=== PATIENT | female | born 1990 | race Caucasian/White ===

== ENCOUNTER 2018-04-21 00:18 | Emergency (ER) | payer OTHER ==
[2018-04-21 01:22] LABS: BASOPHILS # (AUTO) 0.1 10^3/uL (0.0-0.1); BASOPHILS % (AUTO) 1.2 %; EOSINOPHILS # (AUTO) 0.3 10^3/uL (0.0-0.7); EOSINOPHILS % (AUTO) 2.8 %; HGB - HEMOGLOBIN 12.9 g/dL (12.0-16.0); LYMPHOCYTES % (AUTO) 29.3 %; MEAN CORPUSCULAR HEMOGLOBIN 27.8 pg (27.0-31.0); MEAN CORPUSCULAR HGB CONC 33.7 g/dL (32.0-36.0); MEAN CORPUSCULAR VOLUME 82.4 fL (81.0-99.0); MEAN PLATELET VOLUME 7.2 fL (7.9-10.8); MONOCYTES # (AUTO) 0.7 10^3/uL (0.0-1.0); MONOCYTES % (AUTO) 6.3 %; NEUTROPHILS # (AUTO) 6.3 10^3/uL (1.5-6.6); NEUTROPHILS % (AUTO) 60.4 %; PLT - PLATELET COUNT 331 10^3/uL (130-450); RED BLOOD COUNT 4.64 10^6/uL (4.20-5.40); RED CELL DISTRIBUTION WIDTH 15.3 % (12.0-15.0); WHITE BLOOD COUNT 10.4 x10^3/uL (4.8-10.8)
[2018-04-21 01:33] LABS: ALBUMIN 3.8 g/dL (3.2-5.5); ALBUMIN/GLOBULIN RATIO 1.3 (1.0-2.2); ALKALINE PHOSPHATASE 72 IU/L (42-121); ALT ALANINE AMINOTRANSFERASE 21 IU/L (10-60); AST ASPARTATE AMINOTRANSFERASE 26 IU/L (10-42); BILIRUBIN,TOTAL < 0.2 mg/dL (0.2-1.0); BUN - BLOOD UREA NITROGEN 14 mg/dL (6-20); CALCIUM 8.5 mg/dL (8.5-10.3); CARBON DIOXIDE - CO2 22 mmol/L (21-32); CHLORIDE 106 mmol/L (101-111); CREATININE 0.6 mg/dL (0.4-1.0); GFR - MDRD 118 (>89); GLUCOSE 119 mg/dL (70-100); LIPASE 29 U/L (22-51); SODIUM 137 mmol/L (135-145); TOTAL PROTEIN 6.8 g/dL (6.7-8.2)
--- NOTE | 2018-04-21 01:43 | XRAY Report ---
Procedure Date: 04/21/2018 Accession Number: [id number] / [id number] Procedure: XR - Chest 2 View X-Ray CPT Code: 40795 FULL RESULT: EXAM: CHEST RADIOGRAPHY EXAM DATE: 04/21/2018 01:35 AM. CLINICAL HISTORY: Chest pain. COMPARISON: None. TECHNIQUE: 2 views. FINDINGS: Lungs/Pleura: No alveolar consolidation or pleural effusion seen. No pneumothorax. Mediastinum: Heart and mediastinal contours are unremarkable. Other: None. IMPRESSION: 1. No acute abnormality seen in the chest. RADIA
--- NOTE | 2018-04-21 01:49 | ED Physician Documentation ---
History of Present Illness - Stated complaint Stated Complaint: CHEST PAIN - Chief complaint Chief Complaint: Cardiac - History obtained from History obtained from: Patient - Additonal information Additional information: 27-year-old female presents the emergency department with complaints of intermittent episodes of chest pain. The patient experiences pain in the morning and evenings. The symptoms come on suddenly and resolve spontaneously. Typically, the patient does not have symptoms during the day when she is doing activities. No radiation of the symptoms. Symptoms are described as moderate when they occur. Currently, the patient's symptoms are mild. The patient denies shortness of breath, dyspnea on exertion, URI symptoms or fever. No other associated symptoms Review of Systems Constitutional: denies: Fever, Chills Eyes: denies: Loss of vision Ears: denies: Ear pain Nose: denies: Congestion Throat: denies: Sore throat Cardiac: reports: Chest pain / pressure. denies: Pedal edema, Calf pain Respiratory: denies: Dyspnea, Cough, Hemoptysis GI: denies: Abdominal Pain : denies: Dysuria Skin: denies: Rash Musculoskeletal: denies: Neck pain Neurologic: denies: Confused Immunocompromised: denies: Chemotherapy PD PAST MEDICAL HISTORY - Past Medical History Past Medical History: No Psych: Depression, Anxiety - Past Surgical History Past Surgical History: No - Present Medications Home Medications: Ambulatory Orders Medication Instructions Recorded Confirmed Norethindrone [Amber] 1 tab PO DAILY 04/21/18 04/21/18 - Allergies Allergies/Adverse Reactions: Allergies Allergy/AdvReac Type Severity Reaction Status Date / Time Sulfa (Sulfonamide AdvReac Rash Verified 04/21/18 00:32 Antibiotics) - Social History Does the pt smoke?: No Smoking Status: Never smoker Does the pt drink ETOH?: Yes ETOH Use: Wine Does the pt have substance abuse?: No - Immunizations Immunizations are current?: Yes - POLST Patient has POLST: No PD ED PE NORMAL - General General: Alert and oriented X 3, No acute distress - HEENT HEENT: Atraumatic, PERRL, EOMI, Ears normal - Neck Neck: Supple, no meningeal sign - Cardiac Cardiac: RRR, Strong equal pulses - Respiratory Respiratory: No respiratory distress, Clear bilaterally - Abdomen Abdomen: Normal bowel sounds, Non tender - Derm Derm: Normal color - Extremities Extremities: No deformity, No edema - Neuro Neuro: Alert and oriented X 3, Normal speech - Psych Psych: Normal mood Results - Vitals Vitals: Vital Signs - 24 hr 04/21/18 04/21/18 00:20 01:39 Temperature 36.4 C L Heart Rate 84 75 Respiratory 16 17 Rate Blood Pressure 124/82 H 120/83 H O2 Saturation 98 99 Oxygen O2 Source Room air - EKG (time done) 00:29 Rate: Rate (enter#) Rhythm: NSR Intervals: Normal MT, QRS normal Ischemia: Normal ST segments Other comments: Other comments (No acute ischemic changes) - Labs Labs: Laboratory Tests 04/21/18 04/21/18 04/21/18 01:15 01:15 01:15 WBC 10.4 RBC 4.64 Hgb 12.9 Hct 38.2 MCV 82.4 MCH 27.8 MCHC 33.7 RDW 15.3 H Plt Count 331 MPV 7.2 L Neut # (Auto) 6.3 Lymph # (Auto) 3.0 [place] # (Auto) 0.7 Eos # (Auto) 0.3 Baso # (Auto) 0.1 Absolute Nucleated RBC 0.01 Nucleated RBC % 0.1 Sodium 137 Potassium 3.4 L Chloride 106 Carbon Dioxide 22 Anion Gap 9.0 BUN 14 Creatinine 0.6 Estimated GFR (MDRD) 118 Glucose 119 H Calcium 8.5 Total Bilirubin < 0.2 L AST 26 ALT 21 Alkaline Phosphatase 72 Troponin I < 0.04 Total Protein 6.8 Albumin 3.8 Globulin 3.0 Albumin/Globulin Ratio 1.3 Lipase 29 Serum HCG, Qual NEGATIVE - Rads (name of study) CXR Radiology: Final report received (Impression: No acute disease) PD MEDICAL DECISION MAKING - ED course Complexity details: other (Well score 0 PERC score 0) ED course: The patient's workup does not reveal any significant abnormality number necessitate admission to the hospital or acute consultation. The patient's heart score places her into a low risk category and the patient has a negative Wells score and PERC score. The patient appears appropriate for further workup as an outpatient. Currently, acute coronary syndrome, pulmonary embolism and dissection are of low probability. I discussed the findings and plan with the patient who understand and agrees to the plan. I discussed warning signs and recommended returning to the emergency department immediately for worsening or any concerns. - Sepsis Event Vital Signs: Vital Signs - 24 hr 04/21/18 04/21/18 00:20 01:39 Temperature 36.4 C L Heart Rate 84 75 Respiratory 16 17 Rate Blood Pressure 124/82 H 120/83 H O2 Saturation 98 99 Oxygen O2 Source Room air Departure - Departure Disposition: 01 Home, Self Care Clinical Impression: Chest pain Qualifiers: Chest pain type: unspecified Qualified Code(s): R07.9 - Chest pain, unspecified Condition: Good Instructions: ED Chest Pain [facility] Follow-Up: Mariel Caruso MD [Primary Care Provider] - Within 1 week (Please ask your primary care physician to order an outpatient echocardiogram) Comments: These return to the emergency department for worsening symptoms or any concerns
[2018-04-21 02:08] LABS: HCG,QUALITATIVE BLOOD NEGATIVE
[2018-04-21 02:26] VITALS: BP 114/78
== END 2018-04-21 02:28 | disposition home or self-care (01) ==
LOC: ED 00:18
DX: R07.9 Chest pain, unspecified (principal)
CPT/HCPCS: 36415; 71046; 80053; 83690; 84484; 84703; 85025; 93005; 99283